=== PATIENT | male | born 1960 | race Caucasian/White ===

== ENCOUNTER 2022-12-15 11:00 | Day surgery (SDC) | payer BC, SELFPAY ==
[2022-12-15] VITALS (7 sets, daily range): BP systolic 113–138; BP diastolic 61–73; PULSE 60–71; RESP 16–22; TEMP 36.7; O2SAT 96–99; BMI 42.3
[2022-12-15] MEDS: LACTATED RINGER'S SOLUTION 1,000 ML 50 ML IV (11:42)
[2022-12-15 12:25] LABS: INR 1.06; Partial Thromboplastin Time 28.5 sec (22.3-36.2); Prothrombin Time 11.2 sec (9.0-11.6)
[2022-12-15] MEDS: CEFAZOLIN SODIUM/DEXTROSE,ISO 1 GM/50 ML IV.SOLN IV (13:11)
--- NOTE | 2022-12-15 14:13 | PM.URSON ---
Urology Surgery Operative Note Operative Note Procedure Date: 12/15/22 Time Out Performed: yes Pre-op Diagnosis: right ureteral calculus Post-op Diagnosis: same as pre-op Procedures performed: #1. Cystoscopy. 2. Right rigid ureteral dilation. #3. Right ureteroscopy. #4. Stone basket extraction. #5. Placement of 6 [place] variable length right ureteral stent Anesthesia: General-LMA Primary Surgeon: Shawn Solano Complications: none Estimated blood loss (mL): 5 Findings: discoid-shaped stone and ureteral stenosis Specimens: right ureteral calculus Indications for Procedures: this gentleman has a 3-4 mm right mid ureteral calculus which he has been unable to pass for over 3 weeks. He has been having pain every day. He now presents for cystoscopy right stent placement and possible ureteroscopic stone manipulation. He has signed an informed consent for these procedures after all risks were explained to him. Detailed description of Procedure: The patient was brought to the operating room and placed on the operating room table in the supine position. SCDs were placed on the lower extremities and turned on and functioning during the entire case. Timeout was done by all parties in the room. We all agreed upon the patient's identification and the planned procedures for this patient. Genn. anesthesia was then administered. The patient was then repositioned into the modified dorsal lithotomy position. All pressure points were satisfactorily padded. Genitalia were sterilely prepped and draped in usual fashion.I started by passing a 22 [place] Olympus cystoscope per urethra and into the bladder. The anterior urethra was normal. The prostatic urethra showed bilobar hypertrophy. Panendoscopy in the bladder showed no evidence of any tumors or stones. I then passed a Glidewire through the scope and cannulated the right ureter and was able to pass it up into the kidney. Fluoroscopically, I could not see the stone. I then used a 8 and 10 [place] rigid dilator to dilate the distal right ureter. The cystoscope was removed. I then passed an 02/27 navigator ureteral access sheath over the wire and up to the L5 position. The wire and stylette were then removed. I then passed a flexible ureteroscope through the access sheath and into the ureter. I then was able to get up to the stone which was at the L3-L4 position. The stone was bright yellow and discoid in shape. I passed a 0 tip nitinol basket and was able to get the stone within the basket. I then able to cause the stone to rotate and turn more in a longitudinal direction. I was then able to remove the stone. It was sent for stone analysis. I then passed the scope back up into the ureter and evaluated the ureter. It had definite stenosis distal to where the stone was. No other stones were seen. The access sheath was then removed as was the ureteroscope. I then backloaded the cystoscope over the wire and passed it into the bladder. I then slid a 6 [place] variable length right ureteral stent over the wire up into the kidney. The wire was removed and there were good curls in the kidney and in the bladder. The bladder was drained of its contents and the scope was then removed. He was then transferred to a [facility] bed and wheeled to PACU in stable condition. He'll be discharged to home later today with a prescription for Vesicare 10 mg daily #20 and Keflex 500 mg twice a day for one week. The stent will get taken out in 2-3 weeks.
[2022-12-15] MEDS: SOLIFENACIN SUCCINATE 10 MG TABLET PO (14:27)
--- NOTE | 2022-12-15 14:30 | PC.NURSE ---
pt urinates without difficulty. red,no clots
[2022-12-26 00:09] LABS: Calcium Oxalate Dihydrate 50 % (.); Calcium Oxalate Monohydrate 50 % (.); Size 2x4 mm (.)
== END 2022-12-15 15:10 | disposition home or self-care (01) ==
PROVIDERS: PCP Family Medicine; Visit Provider Urology
PROC: (CPT 52332; principal; 2022-12-15 12:20)
DX: N20.1 Calculus of ureter (principal); I25.10 Atherosclerotic heart disease of native coronary artery without angina pectoris; J44.9 Chronic obstructive pulmonary disease, unspecified; E66.01 Morbid (severe) obesity due to excess calories; Z87.442 Personal history of urinary calculi; Z68.41 Body mass index [BMI] 40.0-44.9, adult; Z79.899 Other long term (current) drug therapy; Z87.891 Personal history of nicotine dependence; R10.9 Unspecified abdominal pain
CPT/HCPCS: 52332; 52352; 36415; 76000; 82365; 85610; 85730; 99999; C1874; J2704